=== PATIENT | female | born 1970 | race Caucasian/White ===

== ENCOUNTER → 2016-11-15 | Outpatient (CLI) | payer OTHER ==
--- NOTE | 2016-11-15 23:37 | DI ---
US BRST U/L OR B/L, MAMMO DIAGNOSTIC B/L, BREAST TOMOSYNTHESIS DIG B/L,11/15/2016 1:16 PM: Clinical History: Probable left breast lump. Previous Exam: None available. Findings: Breast tomosynthesis and C. view images of both breasts are obtained, and demonstrate extremely dense fibroglandular elements which limits evaluation. Computer-aided diagnostics were applied. There are no suspicious clusters of microcalcifications nor areas of architectural distortion. Sonographic evaluation was obtained of the left breast due to patient complaining of tenderness and p alpable abnormality. Physical examination revealed a diffusely nodular liver breast with no distinct palpable mass however , sonographic evaluation of the left medial breast revealed a hypoechoic area measuring [address] with some posterior shadowing on the 9:00 axis approximately 5 cm from the nipple. Impression: No mammographic evidence of malignancy however, sonographic shadowing hypoechoic area within the left breast from 9:00 axis. Recommend ultrasound-guided biopsy of the hypoechoic area within the left breast 9:00 axis. BI-RADS: 4 suspicious finding.
== END ==
LOC: MAMMO 12:52
PROVIDERS: ATTEND Nurse Practitioner Family
DX: N63 Unspecified lump in breast (principal); N64.4 Mastodynia
CPT/HCPCS: 76641; G0204; G0279

== ENCOUNTER → 2016-12-18 | Outpatient (CLI) | payer OTHER ==
--- NOTE | 2016-12-19 06:32 | DI ---
US GDE NDL PLCMNT BX/ASP/INJ,12/18/2016 1:46 PM: Clinical History: Suspicious left breast mass. Previous Exam: None at this facility. Procedure: Risks, benefits and alternatives were explained to the patient, and informed written conse nt obtained. The left breast was prepped and draped in usual sterile fashion and 1% lidocaine used for local anest hesia. A small skin incision was made with an 11 blade scalpel. Under sonographic guidance, a 16-gauge spring-loaded biopsy needle was advanced into the hypoechoic a cierra of question in 2 separate samples obtained. A biopsy clip was then placed in the region of the hypoechoic mass. The patient tolerated the procedure well and was sent for a mammogram after the procedure. Findings: Successful left breast biopsy. Pathology pending. Impression:
--- NOTE | 2016-12-19 06:32 | DI ---
MAMMO U/L DIAGNOSTIC,12/18/2016 2:00 PM: Clinical History: Status post left biopsy. Previous Exam: November 15, 2016 Findings: 2 views of the left breast are obtained, and demonstrate a metallic density within the left lower inn er breast corresponding with the area of the biopsy. There is no suspicious cluster of microcalcifications nor areas of architectural distortion. There is heterogeneously dense fibroglandular elements noted. Impression: Surgical clip seen within the left medial breast. Postbiopsy. Pathology is pending. BI-RADS: IV Suspicious abnormality
== END ==
LOC: US 13:34
PROVIDERS: ATTEND Nurse Practitioner Family
DX: N63 Unspecified lump in breast (principal)
CPT/HCPCS: 19083; 76942; G0206